=== PATIENT | male | born 1990 | race Two or more races ===

== ENCOUNTER 2021-06-28 23:26 | Emergency (ER) | payer OTHER ==
[~2021-06-28] VITALS: Ht 193 cm; Wt 88.5 kg
== END 2021-06-29 | disposition left against medical advice (07) ==
LOC: ER 23:26
DX: S40.012A Contusion of left shoulder, initial encounter (principal); S00.83XA Contusion of other part of head, initial encounter; V00.848A Other accident with standing micro-mobility pedestrian conveyance, initial encounter; Y93.89 Activity, other specified; Y92.89 Other specified places as the place of occurrence of the external cause; Z53.21 Procedure and treatment not carried out due to patient leaving prior to being seen by health care provider

== ENCOUNTER 2023-02-24 07:50 | Outpatient (CLI) | payer OTHER | END 2023-02-24 07:59 | disposition home or self-care (01) | LOC: SONOGRAMA 07:50 | PROVIDERS: ATTEND Family Medicine | DX: N41.1 Chronic prostatitis (principal) ==

== ENCOUNTER 2025-01-22 11:34 | Outpatient (CLI) | payer OTHER | END 2025-01-22 11:43 | disposition home or self-care (01) | LOC: RAD 11:34 | DX: M54.2 Cervicalgia (principal); M54.50 Low back pain, unspecified; J15.0 Pneumonia due to Klebsiella pneumoniae ==